=== PATIENT | female | born 1940 | race African-American/Black ===

== ENCOUNTER 2024-02-24 11:26 | Emergency (ER) | payer OTHER ==
[~2024-02-24] VITALS: Ht 167.6 cm; Wt 90.0 kg
[2024-02-24 11:29] VITALS: TEMP 98.5; O2SAT 99
[2024-02-24] MEDS: DILTIAZEM HCL 5MG/ML 5ML VIAL IV ONE ×2 (12:43→13:53)
[2024-02-24] MEDS: ASPIRIN 81MG TABLET PO ONE (12:43)
[2024-02-24 12:51] LABS: BASOPHILS % 0.5 % (0.0-2.0); EOSINOPHILS % 0.6 % (0.0-5.0); HEMATOCRIT. 39.9 % (36.0-48.0); HEMOGLOBIN. 12.8 g/dL (12.0-16.0); MEAN CORPUSCULAR HEMOGLOBIN 26.8 pg (28.0-32.0); MEAN CORPUSCULAR HGB CONC 32.2 g/dL (31.0-37.0); MEAN CORPUSCULAR VOLUME 83.1 fL (81.0-99.0); MEAN PLATELET VOLUME 8.3 fl (7.4-10.4); MONOCYTES % 5.1 % (2.0-8.0); NEUTROPHILS % 74.8 % (40.0-76.0); PLATELET 204 x1000/uL (130-400); RED CELL DISTRIBUTION WIDTH 15.7 % (11.6-14.6); WHITE BLOOD COUNT 5.8 x1000/uL (4.5-11.0)
[2024-02-24 13:02] LABS: CHLORIDE 106 mEq/L (98-107); INR 0.9; POTASSIUM 3.6 mEq/L (3.5-5.1); PROTHROMBIN TIME 10.6 sec (9.6-11.0); SODIUM 140 mEq/L (136-145)
[2024-02-24 13:03] LABS: CALCIUM 9.4 mg/dL (8.7-10.4); CARBON DIOXIDE 26 mEq/L (21-32)
[2024-02-24 13:08] LABS: CREATININE 1.3 mg/dL (0.6-1.0); GLUCOSE 125 mg/dL (70-105); UREA NITROGEN BLOOD 12 mg/dL (9-23)
[2024-02-24 13:10] LABS: TROPONIN I HIGH SENSITIVITY 33 ng/L (3.0-34)
[2024-02-24] MEDS: DILTIAZEM HCL 90MG TABLET PO ONE (13:53)
[2024-02-24] MEDS ORDERED: ENOXAPARIN 100MG/ML SYR SUBCUT ONE (14:45)
[2024-02-24] MEDS: ENOXAPARIN 100MG/ML SYR SUBCUT NR (16:50)
[2024-02-24 19:50] VITALS: BP 166/84; PULSE 64; RESP 13; O2SAT 99
== END 2024-02-24 20:02 | disposition short-term general hospital (02) ==
LOC: ER 11:26 → EDBEDREQ 12:22 → CANBEDREQ 14:44 → ER 20:02
DX: I48.91 Unspecified atrial fibrillation (principal); E11.9 Type 2 diabetes mellitus without complications; E78.00 Pure hypercholesterolemia, unspecified; I10 Essential (primary) hypertension; Z86.73 Personal history of transient ischemic attack (TIA), and cerebral infarction without residual deficits
CPT/HCPCS: 99291; 96374; 71045; 80048; 83880; 85025; 85610; 84484; 36415; 93005; 96376; 96372; J3490; J1650